=== PATIENT | female | born 2000 | race Caucasian/White ===

== ENCOUNTER 2025-01-04 02:27 | Observation (INO) | payer OTHER ==
[2025-01-04] MEDS ORDERED: Calcium Carbonate 500 MG ChewTAB PO PRN (04:23)
[2025-01-04] MEDS ORDERED: Acetaminophen 325 MG TAB PO PRN (04:23)
[2025-01-04] MEDS ORDERED: Senokot S 8.6-50 MG TAB PO PRN (04:23)
[2025-01-04 04:24] VITALS: BMI 44.9
[2025-01-04] MEDS ORDERED: Glucagon 1 MG/ML KIT IM PRN ×2 (04:27→15:08)
[2025-01-04] MEDS ORDERED: Dextrose 50% Abboject 50 ML SYRINGE SLOW IVP PRN ×2 (04:27→15:08)
[2025-01-04] MEDS ORDERED: DULoxetine 30 MG CAP PO SCH ×2 (09:00→10:00)
[2025-01-04] MEDS ORDERED: Carvedilol 3.125 MG TAB PO SCH ×2 (09:00)
[2025-01-04] MEDS: Ondansetron PF 4 MG/2 ML Vial IVP PRN (09:05)
[2025-01-04] MEDS: ARIPIPRAZOLE 5 MG PO SCH (11:34)
[2025-01-04] MEDS: Lisinopril 5 MG TAB PO SCH (11:35)
[2025-01-04] MEDS: DULoxetine 30 MG CAP PO SCH (11:35)
[2025-01-04] MEDS: Atenolol 25 MG TAB PO SCH (11:35)
[2025-01-04 17:13] LABS: Glucose 141 mg/dL (70-105)
[2025-01-04] MEDS ORDERED: QUEtiapine 25 MG TAB PO SCH (21:00)
[2025-01-04] MEDS ORDERED: PRAZOSIN HCL 2 MG PO SCH (21:00)
[2025-01-04] MEDS: QUEtiapine 100 MG TAB PO SCH (21:19)
[2025-01-04 21:25] LABS: Specific Gravity, Urine 1.010 (1.005-1.030)
[2025-01-04 21:26] LABS: Glucose, Urine (Dipstick) Normal (Negative); Leukocyte 25 (Negative); Protein, Urine (Dipstick) 30 mg/dl (Neg-Trace)
[2025-01-04 21:29] LABS: Bacteria/HPF 1+ HPF (None Seen); RBC/HPF Greater than 50 HPF (0-3); WBC/HPF 0-3 HPF (0-3)
[2025-01-05 05:07] LABS: Hematocrit 37.2 % (34.9-44.5); Hemoglobin 12.1 g/dL (12.0-15.5); Mean Corpuscular Hemoglobin 28.1 pg (27.0-33.0); Mean Corpuscular Volume 86.5 fL (81.6-98.3); Platelet Count 372 10x3/uL (150-450); Red Blood Cell (RBC) Count 4.30 10x6/uL (3.90-5.03); White Blood Cell (WBC) Count 11.74 10x3/uL (3.5-10.5)
[2025-01-05 05:13] LABS: ALT (SGPT) 35 U/L (Less than 34); AST (SGOT) 53 U/L (11-34); Albumin 3.4 g/dL (3.1-4.5); Alkaline Phosphatase 76 U/L (40-110); Anion Gap 11 mmol/L (10-20); BUN (Urea Nitrogen) 7 mg/dL (7.0-18.7); Bilirubin, Total 0.4 mg/dL (0.3-1.2); Calc. Creatinine Clearance 268 mL/min (70-130); Calcium 8.8 mg/dL (7.8-10.44); Carbon Dioxide 23 mmol/L (22-29); Chloride 107 mmol/L (98-107); Globulin 3.5 g/dL (2.4-3.5); Glucose 120 mg/dL (70-105); Potassium 3.6 mmol/L (3.5-5.1); Sodium 137 mmol/L (136-145)
[2025-01-05 05:51] LABS: MDiff Complete? YES; Nucleated RBC (Manual Ct) 1 % (0); Platelet Adequacy Comment Appears Adequate; RBC Morphology Within Normal Limits
[2025-01-05] MEDS: Atenolol 25 MG TAB PO SCH (09:53)
[2025-01-05] MEDS: Lisinopril 5 MG TAB PO SCH (09:54)
[2025-01-05 12:44] VITALS: BP 108/64; TEMP 97.8
== END 2025-01-05 14:37 | disposition home or self-care (01) ==
LOC: CSHTELE 03:55
PROVIDERS: ADMIT Internal Medicine; ATTEND Internal Medicine
DX: E11.649 Type 2 diabetes mellitus with hypoglycemia without coma (principal); I10 Essential (primary) hypertension; E78.5 Hyperlipidemia, unspecified; F39 Unspecified mood [affective] disorder; E66.9 Obesity, unspecified; E28.2 Polycystic ovarian syndrome; F12.10 Cannabis abuse, uncomplicated; F17.200 Nicotine dependence, unspecified, uncomplicated; Z88.1 Allergy status to other antibiotic agents; Z88.8 Allergy status to other drugs, medicaments and biological substances; Z91.013 Allergy to seafood; Z79.85 Long-term (current) use of injectable non-insulin antidiabetic drugs; Z79.899 Other long term (current) drug therapy
CPT/HCPCS: 36415; 36416; 80053; 81001; 82010; 82533; 83003; 83036; 83525; 83605; 84443; 84681; 85025; 87086; 94760; 96374; 96376; G0378; J7030; J7042